=== PATIENT | female | born 1965 | race Caucasian/White ===

== ENCOUNTER 2017-06-23 11:16 | Emergency (ER) | payer OTHER ==
--- NOTE | ~2017-06-23 | CT71 ---
[facility]. [facility] A Service of [facility] RADIOLOGY TEXT RESULTS PATIENT: YESSENIA KEANE LOCATION: SED : 65 UNIT #: [id number] AGE: [address]: José Antonio Skinner MD SEX: F ORDER DR: [id number] [address] [address] [id number] MR#: [id number] Acc #: [id number] NAME: YESSENIA KEANE : 1965 SEX: F STUDY DATE/TIME: 06/23/2017 12:15 UNIT: SED ROOM: STUDY DESCRIPTION: CT Head Wo Contrast Attending Physician: José Antonio Skinner M.D. Ordering Physician: José Antonio Skinner M.D. Primary Care Physician: Primary Care Physician No MEDICAL IMAGING REPORT This report is preliminary unless electronic signature is present. EXAM Noncontrast CT head, 06/23/2017 HISTORY Migraine headaches since 4 a.m. today. History of breast cancer. COMPARISON None FINDINGS No acute intracranial hemorrhage, mass lesion, mass effect or midline shift is seen. Joseph matter-white matter junction distinction appears preserved without CT evidence of acute or evolving infarct. Normal ventricular configuration. No acute calvarial abnormality. Mild bilateral ethmoid sinus mucosal thickening. Mastoid air cells are clear. IMPRESSION 1. No acute intracranial findings. 2. Mild bilateral ethmoid sinus mucosal thickening. Dictated by... Asia Heath M.D. THIS IS AN ELECTRONICALLY VERIFIED REPORT Asia Heath M.D. at 06/25/2017 9:33 PM Anthony TD: 06/23/2017 14:01 JOB #: [id number] MEDICAL IMAGING REPORT Page 1 of 1
[2017-06-23] MEDS ORDERED: CYMBALTA PO (11:19)
[2017-06-23] MEDS ORDERED: CRESTOR PO (11:19)
[2017-06-23] MEDS ORDERED: AROMASIN PO (11:19)
[2017-06-23 12:16] LABS: BASOPHIL% 0.8 % (0-2.5); EOSINOPHIL# 0.2 X10e3 (0-0.7); EOSINOPHIL% 3.8 % (0.0-7.0); HEMATOCRIT 41.4 % (35.0-45.0); HEMOGLOBIN 14.6 gm/dL (12.0-16.0); LYMPHOCYTE# 1.6 X10e3 (1.0-3.5); LYMPHOCYTE% 28.9 % (17.0-45.0); MEAN CELL VOLUME 87.2 FL (83-96); MEAN CORPUSCULAR HEMOGLOBIN 30.8 PG (28-34); MEAN CORPUSCULAR HGB CONC 35.3 g/dL (30-36); MEAN PLATELET VOLUME 6.7 FL (6.5-11.5); MONOCYTE# 0.4 X10e3 (0-1.0); MONOCYTE% 7.5 % (3.0-12.0); NEUTROPHIL# 3.2 X10e3 (1.5-7.1); PLATELET COUNT 285 X10e3 (140-420); RED BLOOD COUNT 4.75 X10e (3.90-5.30); RED CELL DISTRIBUTION WIDTH 13.3 % (11.0-15.5); WHITE BLOOD COUNT 5.4 X10e3 (4.0-10.5)
[2017-06-23 12:18] LABS: DIFF IND NO
[2017-06-23 12:33] LABS: PROTHROMBIN TIME (PATIENT) 11.7 SECONDS (9.5-12.4)
[2017-06-23 12:40] LABS: PARTIAL THROMBOPLASTIN TIME 25.8 SECONDS (25.6-38.1)
[2017-06-23 12:42] LABS: ALBUMIN SERUM 4.3 g/dL (3.5-5.0); ALKALINE PHOSPHATASE 74 U/L (32-92); ALT (SGPT) 23 U/L (10-40); AST (SGOT) 23 U/L (10-42); BILIRUBIN,TOTAL 0.7 mg/dL (0.2-2.0); BLOOD UREA NITROGEN 18 mg/dL (9-23); BUN/CREATININE RATIO 25.71; CALCIUM SERUM 9.4 mg/dL (8.4-10.2); CARBON DIOXIDE 26 mmol/L (22-31); CHLORIDE 103 mmol/L (100-111); CREATININE SERUM 0.7 mg/dL (0.6-1.4); GLOM FILT RATE Estimated 99.6 mL/min (>60); GLUCOSE FASTING 117 mg/dL (70-110); POTASSIUM 4.3 mmol/L (3.5-5.1); PROTEIN TOTAL SERUM 7.5 g/dL (6.0-8.3); SODIUM 136 mmol/L (135-145)
[2017-06-23 12:43] LABS: BILIRUBIN, DIRECT <0.1 mg/dL (0.0-0.2); BILIRUBIN,INDIRECT 0.6 mg/dL (0.0-0.9)
== END 2017-06-23 15:07 | disposition home or self-care (01) ==
LOC: SED 11:16
PROVIDERS: Emergency Medicine
DX: G43.909 Migraine, unspecified, not intractable, without status migrainosus (principal); I10 Essential (primary) hypertension; Z87.891 Personal history of nicotine dependence
CPT/HCPCS: 36415; 70450; 80048; 80076; 85025; 85610; 85730; 96372; 96374; 96375; 99284; J1170; J2405; J2550